=== PATIENT | male | born 1975 | race Caucasian/White ===

== ENCOUNTER 2020-08-29 15:25 | Emergency (ER) | payer SELFPAY ==
[2020-08-29] MEDS ORDERED: D50W 25 GM/50 ML SYRINGE IV ONE (15:26)
[2020-08-29] MEDS ORDERED: EPINEPHrine 1 MG/10 ML SYR IV ONE (15:26)
[2020-08-29] MEDS ORDERED: NA CHLORIDE 0.9% 1,000 ML IV ONE (15:26)
[2020-08-29] MEDS ORDERED: RSI MEDICATION KIT IV ONE (15:41)
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
== END 2020-08-29 18:18 | disposition expired ==
LOC: ER 15:25
PROC: 0BH17EZ Insertion of Endotracheal Airway into Trachea, Via Natural or Artificial Opening (ICD-10-PCS; principal; 2020-08-29)
DX: I46.9 Cardiac arrest, cause unspecified (principal)
CPT/HCPCS: 31500; 82947; 92950; 99285; J0171; J7030